=== PATIENT | male | born 1960 | race African-American/Black ===

== ENCOUNTER 2017-04-11 11:58 | Inpatient (IN) | payer BC ==
[~2017-04-11] VITALS: Ht 180.3 cm; Wt 133.4 kg
[2017-04-24] MEDS ORDERED: CLOP75TA PO (11:37)
[2017-04-24] MEDS ORDERED: AMLO5TAB2 PO (11:37)
[2017-04-24] MEDS ORDERED: CARV12.52 PO (11:37)
[2017-04-24] MEDS ORDERED: ASPI-110 PO (11:37)
[2017-04-24] MEDS ORDERED: LOSA50TA PO (11:37)
[2017-04-24] MEDS ORDERED: HYDR-3580 PO (12:30)
[2017-05-16] MEDS ORDERED: SODIUM CHLORID 0.9% 500 ML IV PRN (08:45)
[2017-05-16] MEDS ORDERED: INSULIN HUMAN REGULAR 1,000 UNITS/10 ML VIAL SQ PRN (08:45)
[2017-05-16] MEDS ORDERED: VANCOMYCIN 1000 MG/NS 250 ML (for <70 kg) IV SCH ×2 (08:45)
[2017-05-16] MEDS ORDERED: ceFAZolin 2 GM PREMIX 50 ML IV SCH (08:45)
[2017-05-16] MEDS ORDERED: POVIDONE IODINE 5% (ANTISEPSIS KIT) 4 APPLICATIONS EACH NARE PRN (08:45)
[2017-05-16] MEDS ORDERED: CHLORHEXIDINE GLUCONATE 2 % 1 PACK (2 CLOTHS) TOPICAL PRN (08:45)
[2017-05-16] MEDS ORDERED: METOPROLOL TARTRATE 25 MG TAB PO PRN (08:45)
[2017-05-16] MEDS ORDERED: LACTATED RINGER'S 1000 ML IV PRN (08:45)
[2017-05-16] MEDS ORDERED: CHLORHEXIDINE GLUCONATE 4% SOLN 120 ML BTL TOPICAL SCH (08:45)
[2017-05-16] MEDS ORDERED: SODIUM CHLORIDE 0.9% IV SCH (09:00)
[2017-05-16] MEDS ORDERED: TRANEXAMIC ACID IV SCH (09:00)
[2017-05-16] MEDS ORDERED: EXPAREL PERI-ARTICULAR INJECTION (TOTAL VOL. 60 ML) P-ARTICULR SCH ×2 (09:00)
[2017-05-16 09:15] VITALS: BP 149/97; PULSE 55; RESP 20; TEMP 98.3; O2SAT 97
[2017-05-16] MEDS ORDERED: ACETAMINOPHEN 1000 MG/100 ML VIAL IV ONE (11:12)
[2017-05-16] MEDS ORDERED: HYDR-3583 PO (11:43)
[2017-05-16] MEDS ORDERED: WALKER WHEELS/F1 MIS (11:43)
[2017-05-16] MEDS ORDERED: XARE10TA PO (11:43)
--- NOTE | 2017-05-16 11:44 | HHI.FF ---
Face to Face Verification Diagnosis: (1) Status post total hip replacement, right Physical Therapy Gait training Hip: Total hip, Protocol: Right, Progress to weight bearing Right LE Weight Bearing: WB as tolerated Nursing Dressing Changes: Daily dressing change, Coverderm/Primapore (begin adding xeroform POD 10) I have seen patient Ralph Bates on 05/16/17. My clinical findings support the need for the requested home health care services because: Ltd mobility - disease progression I certify that my clinical findings support that this patient is homebound because: Post-op weakness Trey Holland May 16, 2017 11:44
[2017-05-16] MEDS ORDERED: NEOSTIGMINE 3 MG/3 ML SYR IV ONE (12:00)
[2017-05-16] MEDS ORDERED: ONDANSETRON HCL 4 MG/2 ML VIAL IV PUSH ONE (12:00)
[2017-05-16] MEDS ORDERED: PROPOFOL 200 MG/20 ML AMP IV ONE (12:00)
[2017-05-16] MEDS ORDERED: ePHEDrine/NS 25 MG/5 ML SYR IV ONE (12:00)
[2017-05-16] MEDS ORDERED: GENTAMICIN SULFATE 80 MG/2 ML VIAL ONE (12:24)
[2017-05-16] MEDS ORDERED: DEXAMETHASONE SOD PHOS 4 MG/ML VIAL ONE (12:32)
[2017-05-16] MEDS: LACTATED RINGER'S 1000 ML INJ 1,000 ML IV SCH (15:02)
--- NOTE | 2017-05-16 15:06 | PD.OP ---
cc: Kadeem Stubbs MD Operative Report Date of Surgery: May 16, 2017 Preoperative Diagnosis: Severe right hip osteoarthritis Postoperative Diagnosis: Procedure: Right total hip arthroplasty the anterior approach Anesthesia: Gen. Surgeon: Kadeem Stubbs Shipfitter Helper(s): SAGRARIO Kennedy PA-C The surgical procedure was assisted by my physician election assistant. My P.A. presence was necessary throughout this case for the manipulation and positioning of the surgical extremity. My P.A. was assisting me throughout the duration of this procedure. The skill set of a physician election assistant was medically necessary to complete this procedure. During the surgical case the pv design and installation technician was working at the back table and the physician election assistant was directly assisting me. Operation and Findings: PLAN OF ACTIVITY Weight bear as tolerated. DRAINS: 7-mm PEBBLES drain. IMPLANTS USED DePuy Corail size [12] collared stem with a size [2] [place] Gription cup and a [36+8] ceramic Biolox ceramic head. DETAILS OF PROCEDURE: This patient has a long history of hip pain. Patient was found to have severe osteoarthritis. The patient had radiographic evidence of joint space narrowing with [id number] arthritis and osteophytes around the acetabulum as well as the femoral head. There was also some cystic changes. The patient failed conservative treatment with pain medications, anti-inflammatories, physical therapy, assistive devices including a cane, as well as therapeutic injection of the hip. Patient's hip arthritis was limiting his ability to ambulate and perform activities of daily living. The patient wished to proceed with surgery and informed consent was obtained. Operative site was marked. I discussed both posterior approach and anterior approach with the patient and decision was made for anterior approach. Patient was brought to OR and placed on OR table. IV sedation and general anesthesia was administered by anesthesiologist. Patient positioned on a Evelyn table and was given IV antibiotics. Time-out procedure was performed. The hip and thigh were prepped with alcohol followed by Hibiclens. The thigh was draped in the usual sterile fashion. Clean Air Suite was used for this procedure. The procedure began with a 5-inch incision over the anterolateral thigh. Subcutaneous tissue was dissected with Bovie. The fascia over the tensa fasciae latae was incised. Care was taken to avoid injury to the lateral femoral cutaneous nerve. The tensor muscle was retracted laterally. Sartorius was retracted medially. Retractors were now placed. The reflected head of the rectus is now elevated. A capsulotomy was performed over the anterior head capsule. Sutures were placed to help retract the capsule. At this point the femoral head and neck were identified. With soft tissue protected, oscillating saw was used to make a cut through the femoral neck, the femoral head was now removed. At this point attention was turned to preparation of the acetabulum. The labrum was excised. The acetabulum was sequentially reamed up to size [52]. A [place] cup was now placed. Fluoroscopy was used to aid in identification of appropriate version. Cup was fully impacted and found to have excellent fit. Hole eliminator was now placed. The liner was now impacted into the cup. At this point the hip was externally rotated. A hook was placed around the proximal femur. The capsule was released off the lateral and medial femur. The hip was now extended and adducted. Retractors were placed around the proximal femur to allow for exposure. A box osteotome was used to remove the lateral cortex of the femoral neck. A broach was used to help lateralize the prosthesis. Canal finder was used to create a path down the canal. Next, the canal was sequentially broached up to size [12]. This was found to be an excellent fit. Calcar planer was placed. A standard head was placed, and the hip was reduced. The hip was found to have excellent stability with good range of motion. The leg lengths were measured under fluoroscopy and found to be equal compared to preoperatively. Trial broach was removed. The Corail stem was opened. Stem was fully impacted into the proximal femur in appropriate version. The femoral head was placed. The hip was again reduced. Fluoroscopy confirmed excellent alignment of prosthesis. The wound was thoroughly irrigated and capsule was closed with #1 Vicryl. The fascia over the tensor fasciae muscle was closed with #1 Vicryl, subcutaneous tissue was closed with 3-0 Vicryl and the skin was closed with moody and Dermabond skin closure. The capsule layers were injected with a mixture of saline and bupivicaine. Dressings were applied. The patient was transferred to Recovery Room in stable condition. Kadeem Stubbs MD May 16, 2017 15:06
[2017-05-16] MEDS ORDERED: ACETAMINOPHEN/HYDROcodone 325 MG/7.5 MG TAB PO PRN (15:15)
[2017-05-16] MEDS ORDERED: NALOXONE HCL 0.4 MG/ML AMP IV PRN (15:15)
[2017-05-16] MEDS ORDERED: ONDANSETRON HCL 4 MG/2 ML VIAL IVP PRN (15:15)
[2017-05-16] MEDS ORDERED: MORPHINE SULFATE 4 MG/ML INJ IV PUSH PRN (15:15)
[2017-05-16] MEDS: KETOROLAC TROMETHAMINE 30 MG/ML (IVP) VIAL IV PUSH SCH (15:15)
[2017-05-16] MEDS ORDERED: Post-op Orders (for Pharmacy) MISC XX ONE (15:15)
[2017-05-16] MEDS ORDERED: SODIUM CHLORIDE 0.9% FLUSH 5 ML FLUSH IVF PRN (15:15)
--- NOTE | 2017-05-16 15:35 | RADRPT ---
EXAM DATE/TIME: 05/16/2017 13:02 [facility] COMPARISON: No previous studies available for comparison. INDICATIONS : Total right hip replacement. MEDICAL HISTORY : None. SURGICAL HISTORY : None. ENCOUNTER: Initial ACUITY: 1 day PAIN SCORE: Non-responsive. LOCATION: Right hip. FINDINGS: Total hip arthroplasty is in place. The femoral and acetabular components appear intact. There are no signs of loosening or fracture. CONCLUSION: Intact total hip prosthesis for dung. Berny Melton MD on May 16, 2017 at 15:33 Board Certified Radiologist. This report was verified electronically.
[2017-05-16] MEDS ORDERED: MORPHINE SULFATE 4 MG/ML INJ ONE (15:37)
[2017-05-16] MEDS ORDERED: MIDAZOLAM HCL 2 MG/2 ML VIAL ONE (15:37)
[2017-05-16] MEDS ORDERED: fentaNYL CITRATE 250 MCG/5 ML AMP ONE (15:38)
[2017-05-16] MEDS ORDERED: TRANEXAMIC ACID INJ 1,000 MG in SODIUM CHLORIDE 0.9% INJ 100 ML IV ONE (16:00)
[2017-05-16] MEDS ORDERED: *morphine SULFATE 8 MG/ML PERIprocedure ONLY ONE ×2 (16:04→16:35)
[2017-05-16] MEDS ORDERED: DO NOT ADM ANY ANTICOAGULANT DRUGS PRN (16:30)
[2017-05-16 17:00] VITALS: BP 150/86; PULSE 107; RESP 18; TEMP 98.2; O2SAT 93
--- NOTE | 2017-05-16 17:17 | RADRPT ---
EXAM DATE/TIME: 05/16/2017 15:38 [facility] COMPARISON: HIP RIGHT (AP&LAT 2/3VWS) WO AP PELVIS, May 16, 2017, 13:02. INDICATIONS : Post operative right hip. MEDICAL HISTORY : None. SURGICAL HISTORY : None. ENCOUNTER: Initial ACUITY: 1 day PAIN SCORE: Non-responsive. LOCATION: Right hip. FINDINGS: Total hip arthroplasty is in place on the right. The femoral and acetabular components appear intact . There are no signs of loosening or fracture. CONCLUSION: Intact total hip prosthesis for dung. Berny Melton MD on May 16, 2017 at 17:15 Board Certified Radiologist. This report was verified electronically.
[2017-05-16] MEDS: ceFAZolin 2 GM PREMIX 50 ML IV SCH (18:19)
[2017-05-16 19:40] VITALS: BP 134/86; PULSE 62; RESP 17; TEMP 98.3; O2SAT 94
[2017-05-16] MEDS: SODIUM CHLORIDE 0.9% FLUSH 5 ML FLUSH IVF SCH (20:02)
[2017-05-16 20:04] VITALS: O2SAT 93
[2017-05-16] MEDS: amLODIPine BESYLATE 5 MG TAB PO SCH (21:00)
[2017-05-16] MEDS: ACETAMINOPHEN/HYDROcodone 325 MG/10 MG TAB PO PRN (21:34)
[2017-05-16] MEDS: CARVEDILOL 12.5 MG TAB PO SCH (22:06)
[2017-05-16] MEDS: LOSARTAN 50 MG TAB PO SCH (22:06)
[2017-05-16] MEDS: VANCOMYCIN INJ 1,000 MG in SODIUM CHLOR 0.9% 250 ML INJ 250 ML IV SCH (23:08)
[2017-05-17] VITALS (7 sets, daily range): BP systolic 111–145; BP diastolic 66–84; PULSE 56–69; RESP 17–18; TEMP 97.6–98; O2SAT 94–97
[2017-05-17] MEDS: ceFAZolin 2 GM PREMIX 50 ML IV SCH ×2 (01:39→06:23)
[2017-05-17] MEDS: KETOROLAC TROMETHAMINE 30 MG/ML (IVP) VIAL IV PUSH SCH ×2 (03:53→15:37)
[2017-05-17] MEDS: LACTATED RINGER'S 1000 ML INJ 1,000 ML IV SCH ×3 (03:54→20:43)
--- NOTE | 2017-05-17 06:36 | PD.ORT.PN ---
Subjective Subjective Remarks POD 1 s/p Right MARNIE doing well. pain controlled. out of bed yesterday and sat in chair. Objective Vitals Vital Signs Date Time Temp Pulse Resp B/P Pulse Ox O2 Delivery O2 Flow Rate FiO2 05/17/17 03:51 97.8 58 17 144/80 94 05/17/17 00:30 97.8 58 17 127/84 94 05/16/17 20:04 93 21 05/16/17 19:40 98.3 62 17 134/86 94 05/16/17 17:00 98.2 107 18 150/86 93 05/16/17 17:00 60 20 148/91 93 Room Air 05/16/17 16:45 59 20 146/87 92 Room Air 05/16/17 16:30 57 20 146/86 94 Room Air 05/16/17 16:15 57 20 147/86 93 Room Air 05/16/17 16:00 58 20 147/84 94 Room Air 05/16/17 15:45 66 20 139/75 92 Nasal Cannula 2 05/16/17 15:29 98.0 68 20 133/71 99 Nasal Cannula 2 05/16/17 09:15 98.3 55 20 149/97 97 I/O 05/16/17 05/16/17 05/16/17 05/17/17 05/17/17 05/17/17 07:00 15:00 23:00 07:00 15:00 23:00 Intake Total 2260 ml Output Total 525 ml Balance 1735 ml Intake IV Total 160 ml Other 2100 ml Output Urine Total 300 ml Drainage Total 175 ml Estimated Blood Loss 50 ml # Voids 1 Imaging Last 24 hours Impressions Hip and Pelvis X-Ray 05/16/17 1502 Signed Impressions: Service Date/Time: Tuesday, May 16, 2017 15:38 - CONCLUSION: Intact total hip prosthesis for technique. K. Harlan Melton MD Objective Remarks RLE: Dressings clean and dry. intact. +drain. NVI distally Assessment & Plan Assessment and Plan 1) Right Anterior MARNIE - POD 1 -WBAT -daily dressing changes starting tomorrow -work aggressively with PT -DVT prophylaxis with Lovenox. convert to xarelto on discharge -DC drain after PT today -plan for DC home with [facility] tomorrow -f/u with Trey or PA in 2 weeks Trey Holland PA May 17, 2017 06:36
[2017-05-17 08:24] LABS: HEMATOCRIT 36.8 % (39.0-51.0); REVIEW FLAG FINAL
[2017-05-17] MEDS: amLODIPine BESYLATE 5 MG TAB PO SCH (08:35)
[2017-05-17] MEDS: CARVEDILOL 12.5 MG TAB PO SCH (08:35)
[2017-05-17] MEDS: LOSARTAN 50 MG TAB PO SCH (08:35)
[2017-05-17] MEDS: ACETAMINOPHEN/HYDROcodone 325 MG/10 MG TAB PO PRN ×3 (08:36→16:44)
[2017-05-17] MEDS: SODIUM CHLORIDE 0.9% FLUSH 5 ML FLUSH IVF SCH ×2 (08:40→20:50)
[2017-05-17] MEDS: VANCOMYCIN INJ 1,000 MG in SODIUM CHLOR 0.9% 250 ML INJ 250 ML IV SCH (10:33)
[2017-05-17] MEDS: ENOXAPARIN SODIUM 40 MG/0.4 ML SYRINGE SQ SCH (15:37)
[2017-05-17] MEDS: DOCUSATE SODIUM 100 MG CAP PO SCH (20:50)
[2017-05-17] MEDS: MAGNESIUM HYDROXIDE SUSP 30 ML CUP PO SCH (20:50)
[2017-05-17] MEDS: BISACODYL EC 5 MG TABEC PO SCH ×2 (20:50)
[2017-05-17] MEDS ORDERED: POLYETHYLENE GLYCOL 17 GM PKG PO SCH (21:00)
[2017-05-18] VITALS: BP 131/81; PULSE 61; RESP 16; TEMP 98.9; O2SAT 95
[2017-05-18] MEDS: ACETAMINOPHEN/HYDROcodone 325 MG/10 MG TAB PO PRN ×3 (00:11→09:33)
[2017-05-18] MEDS: KETOROLAC TROMETHAMINE 30 MG/ML (IVP) VIAL IV PUSH SCH (03:03)
--- NOTE | 2017-05-18 06:40 | PD.ORT.PN ---
Subjective Subjective Remarks Resting comfortably Objective Vitals Vital Signs Date Time Temp Pulse Resp B/P Pulse Ox O2 Delivery O2 Flow Rate FiO2 05/18/17 00:00 98.9 61 16 131/81 95 05/17/17 20:00 98.0 64 17 111/66 95 05/17/17 16:00 98.0 69 18 133/73 97 05/17/17 12:00 97.8 56 18 145/77 95 05/17/17 09:40 95 21 05/17/17 08:00 97.6 57 18 142/78 94 I/O 05/17/17 05/17/17 05/17/17 05/18/17 05/18/17 05/18/17 07:00 15:00 23:00 07:00 15:00 23:00 Intake Total 240 ml 1507 ml 570 ml 480 ml Output Total 600 ml 90 ml 480 ml 500 ml Balance -360 ml 1417 ml 90 ml -20 ml Intake Oral 240 ml 650 ml 570 ml 480 ml IV Total 857 ml Output Urine Total 600 ml 450 ml 500 ml Drainage Total 90 ml 30 ml # Voids 3 # Bowel Movements 0 0 1 Result Diagram: 05/17/17 0639 Imaging Last 24 hours Impressions Hip and Pelvis X-Ray 05/16/17 1502 Signed Impressions: Service Date/Time: Tuesday, May 16, 2017 15:38 - CONCLUSION: Intact total hip prosthesis for technique. Berny Melton MD Objective Remarks RLE: Dressings clean and dry. intact. Mild swelling. NVI distally Assessment & Plan Assessment and Plan 1) Right Anterior MARNIE - POD 2 -WBAT -daily dressing changes -work aggressively with PT -DVT prophylaxis with Lovenox. convert to xarelto on discharge -plan for DC home with [facility] today -f/u with Trey or FRANK in 2 weeks Mak Corcoran Jr. May 18, 2017 06:40
--- NOTE | 2017-05-18 06:55 | HHI.DS ---
Discharge Summary Admission Date May 16, 2017 at 08:06 Discharge Date: May 18, 2017 Admitting Diagnosis Osteoarthritis right hip (1) Status post total hip replacement, right Diagnosis: Principal Procedures Right anterior total hip Brief History Ralph is a 56-year-old male who has had severe osteoarthritis of right hip. He is failed conservative measures which include anti-inflammatories last modifications and intra-articular articular steroid injections. He is admitted due to failed pain control and a right total hip arthroplasty is scheduled. CBC/BMP: 05/17/17 0639 Significant Findings Laboratory Tests Test 05/17/17 06:39 Hemoglobin 12.0 GM/DL (13.0-17.0) Hematocrit 36.8 % (39.0-51.0) Imaging Last 72 hours Impressions Hip and Pelvis X-Ray 05/16/17 1502 Signed Impressions: Service Date/Time: Tuesday, May 16, 2017 15:38 - CONCLUSION: Intact total hip prosthesis for technique. Berny Melton MD Hip X-Ray 05/16/17 0000 Signed Impressions: Service Date/Time: Tuesday, May 16, 2017 13:02 - CONCLUSION: Intact total hip prosthesis for technique. Berny Melton MD Hospital Course Ralph is admitted and brought to the operating room. Right total hip arthroplasty performed with no complications. Patient remains hemodynamically stable and pain is controlled. He progresses well with physical therapy and is minimal assist. After 2 days he is discharged home with home health care. His is around the house and will also help with assist. Pt Condition on Discharge: Good Discharge Disposition: Disch w/ Home Health Serv Discharge Instructions DIET: Follow Instructions for: As Tolerated, No Restrictions Activities you can perform: Full Weight Bearing Activities to avoid: Shower Follow up Referrals: Orthopedics - 05/30/17 @ [facility] with Kadeem Yang MD New Medications: Hydrocodone-Acetaminophen (Hydrocodone-Acetaminophen) 10-325 mg Tab 1 TAB PO Q4H PRN PAIN #60 Ref 0 TAB Rivaroxaban (Xarelto) 10 Mg Tab 10 MG PO DAILY Blood Clot Prevention #14 Ref 0 TAB Walker with Front Wheels (Walker with Front Wheels) 1 Mis Mis 1 EA .ROUTE DIRECTED #1 Ref 0 EA Mak Corcoran Jr. May 18, 2017 06:55
[2017-05-18] MEDS: BISACODYL EC 5 MG TABEC PO SCH ×2 (07:11→07:27)
[2017-05-18] MEDS: MAGNESIUM HYDROXIDE SUSP 30 ML CUP PO SCH (07:11)
[2017-05-18] MEDS: amLODIPine BESYLATE 5 MG TAB PO SCH (07:27)
[2017-05-18] MEDS: CARVEDILOL 12.5 MG TAB PO SCH (07:27)
[2017-05-18] MEDS: DOCUSATE SODIUM 100 MG CAP PO SCH (07:27)
[2017-05-18] MEDS: LOSARTAN 50 MG TAB PO SCH (07:28)
[2017-05-18] MEDS: LACTATED RINGER'S 1000 ML INJ 1,000 ML IV SCH (07:29)
[2017-05-18] MEDS: SODIUM CHLORIDE 0.9% FLUSH 5 ML FLUSH IVF SCH (07:32)
[2017-05-18 07:36] VITALS: PULSE 62
[2017-05-18 08:00] VITALS: BP 114/74; PULSE 65; RESP 16; TEMP 98.3; O2SAT 94
[2017-05-18] MEDS: ENOXAPARIN SODIUM 40 MG/0.4 ML SYRINGE SQ SCH (12:00)
== END 2017-05-18 12:14 | disposition home health service (06) | DRG 470 ==
LOC: HSDI 05-16 08:06 → N06A 05-16 17:19
PROVIDERS: ADMIT Orthopaedic Surgery Orthopaedic Trauma; ATTEND Orthopaedic Surgery Orthopaedic Trauma
PROC: 0SRB04A Replacement of Left Hip Joint with Ceramic on Polyethylene Synthetic Substitute, Uncemented, Open Approach (ICD-10-PCS; principal; 2017-05-16 12:39)
DX: M16.11 Unilateral primary osteoarthritis, right hip (principal); Z68.41 Body mass index [BMI] 40.0-44.9, adult; E66.9 Obesity, unspecified
CPT/HCPCS: 73501; 73502; 76000; 85014; 85018; 86850; 86900; 86901; C1776; C9290; J0131; J0690; J1100; J1580; J1650; J1885; J2250; J2270; J2405; J2710; J3010; J3370; J7050; J7120

== ENCOUNTER → 2017-04-24 | Outpatient (CLI) | payer BC ==
[~2017-04-24] MED LIST: AMLO5TAB2 PO; ASPI-110 PO; ASPI81 CHEW; CARV12.52 PO; CLOP75TA PO; CORE6.25 PO; HYDR-3580 PO; LISI20 PO; LOSA50TA PO; NITR.4 SL; NORV5TAB PO; PLAV75TA PO; Z.0.UNKNOWN
--- NOTE | 2017-04-24 12:25 | RADRPT ---
EXAM DATE/TIME: 04/24/2017 12:13 [facility] COMPARISON: No previous studies available for comparison. INDICATIONS : Evaluate for pneumonia, pneumothorax or communicable disease. Pre op right hip replacement. MEDICAL HISTORY : Cardiovascular disease. SURGICAL HISTORY : Coronary artery stent. ENCOUNTER: Initial ACUITY: 1 day PAIN SCORE: 0/10 LOCATION: Bilateral chest FINDINGS: PA and lateral views of the chest demonstrate the lungs to be symmetrically aerated without evidence of mass, infiltrate or effusion. The cardiomediastinal contours are unremarkable. Degenerative mcleod ges are present in the thoracic spine. CONCLUSION: No acute disease. Madi Prabhakar MD FACR on April 24, 2017 at 12:22 Board Certified Radiologist. This report was verified electronically.
--- NOTE | 2017-04-25 16:53 | EKG ---
Date Performed: 04/24/2017 Time Performed: 11:56:43 PTAGE: 56 years EKG: SINUS BRADYCARDIA WITH SINUS ARRHYTHMIA Since previous tracing, no significant change noted BORDERLINE ECG PREVIOUS TRACING : 09/12/2013 10.53 DOCTOR: Alina Aguirre Interpretating Date/Time 04/25/2017 17:33:13
== END ==
LOC: CPRE 11:26
PROVIDERS: ATTEND Orthopaedic Surgery Orthopaedic Trauma
DX: Z01.810 Encounter for preprocedural cardiovascular examination (principal); Z01.811 Encounter for preprocedural respiratory examination; M79.609 Pain in unspecified limb; R94.31 Abnormal electrocardiogram [ECG] [EKG]; Z13.9 Encounter for screening, unspecified; Z79.01 Long term (current) use of anticoagulants; Z96.60 Presence of unspecified orthopedic joint implant
CPT/HCPCS: 71020; 93005

== ENCOUNTER 2017-06-04 06:24 | Emergency (ER) | payer BC ==
[~2017-06-04] VITALS: Ht 180.3 cm; Wt 130.5 kg
[~2017-06-04 06:24] MED LIST changes: -ASPI81 CHEW; -CORE6.25 PO; +HYDR-3583 PO; -LISI20 PO; -NITR.4 SL; -NORV5TAB PO; -PLAV75TA PO; +WALKER WHEELS/F1 MIS; +XARE10TA PO; -Z.0.UNKNOWN
[2017-06-04 06:26] VITALS: BP 171/90; PULSE 67; RESP 16; TEMP 99.1; O2SAT 97
[2017-06-04 06:45] VITALS: BP 180/108; PULSE 59; RESP 18; O2SAT 99
[2017-06-04 07:05] VITALS: BP 160/74; PULSE 57; RESP 20; O2SAT 100
[2017-06-04] MEDS ORDERED: KETOROLAC TROMETHAMINE 30 MG/ML (IVP) VIAL IV PUSH ONE (07:15)
[2017-06-04] MEDS ORDERED: META1TAB17 PO (07:30)
--- NOTE | 2017-06-04 07:30 | PD ---
HPI Chief Complaint: Back/ Neck Pain or Injury Time Seen by Provider: 07:00 Travel History International Travel<30 days: No Contact w/Intl Traveler<30days: No Traveled to known affect area: No History of Present Illness HPI 57 y/o male presents with left neck pain that is been present over the past couple of weeks. He states that he had a hip replacement and has had to be sleeping differently than he normally sleeps and that is made his neck feel uncomfortable. He states he went to his primary care physician who wrote him for a muscle relaxant but it was a lower dose and did not help. He states he's also been trying Motrin. He denies any numbness, trauma, chest pain, left arm pain, shortness of breath or other concurrent complaints. The pain is worse with movement. He states he is here for further pain control. He states no other modifying factors. He states this does not feel like his prior cardiac event as that he had chest pain and chest pressure. PFSH Past Medical History Cancer: No Cardiac Catheterization: Yes Cardiovascular Problems: Yes (Stents 2011) High Cholesterol: Yes Diabetes: No Endocrine: No Genitourinary: No Hepatitis: No Hiatal Hernia: No Hypertension: Yes Immune Disorder: No Medical other: Yes (PSORIASIS) Musculoskeletal: Yes (OA) Neurologic: No Psychiatric: No Reproductive: No Respiratory: No Thyroid Disease: No Tetanus Vaccination: Unknown Influenza Vaccination: Yes Past Surgical History Abdominal Surgery: No AICD: No Body Medical Devices: CARDIAC STENTS Cardiac Surgery: Yes (CARDIAC STENTS) Coronary Stent: Yes (2 STENTS JUL 17 2012) Ear Surgery: No Endocrine Surgery: No Eye Surgery: No Genitourinary Surgery: No Joint Replacement: Yes (R hip replacement 05/2017) Oral Surgery: No Pacemaker: No Thoracic Surgery: No Social History Alcohol Use: No Tobacco Use: No Substance Use: No Allergies-Medications (Allergen,Severity, Reaction): Coded Allergies: No Known Allergies (Unverified , 04/24/17) Reported Meds & Prescriptions Reported Meds & Active Scripts Active Metaxalone 400 Mg Tab 400 Mg PO HS Walker with Front Wheels (Device) 1 Mis Mis 1 Ea .ROUTE DIRECTED Reported Aspirin 81 (Aspirin) 81 Mg Tabdr 81 Mg PO DAILY Carvedilol 12.5 Mg Tab 12.5 Mg PO BID Losartan (Losartan Potassium) 50 Mg Tab 50 Mg PO DAILY Amlodipine (Amlodipine Besylate) 5 Mg Tab 5 Mg PO DAILY Review of Systems Except as stated in HPI: all other systems reviewed are Neg Physical Exam Narrative GENERAL: Well-nourished, well-developed patient. Well-appearing SKIN: Warm and dry. HEAD: Normocephalic and atraumatic. EYES: No injection or drainage. ENT: No nasal drainage noted. NECK: Supple, trachea midline. Nontender in midline, pinpoint tender to left trapezius which is worse with movement, no hematoma CARDIOVASCULAR: Regular rate and rhythm RESPIRATORY: Breath sounds equal bilaterally. No accessory muscle use. GASTROINTESTINAL: Abdomen soft, non-tender, nondistended. EXTREMITIES: No edema. BACK: Nontender without obvious deformity in midline, no CVA tenderness. NEUROLOGICAL: Awake and alert. Motor and sensory grossly within normal limits. Normal speech. Data Data Last Documented VS Vital Signs Date Time Temp Pulse Resp B/P Pulse Ox O2 Delivery O2 Flow Rate FiO2 06/04/17 07:05 57 20 160/74 100 Room Air 06/04/17 06:26 99.1 Orders Ketorolac Inj (Toradol Inj) (06/04/17 07:15) [facility] Medical Decision Making Medical Screen Exam Complete: Yes Emergency Medical Condition: Yes Medical Record Reviewed: Yes (past history confirmed) Differential Diagnosis Musculoskeletal strain, rotator cuff tendinitis, spasm Narrative Course Lengthy discussion with patient and he agrees to no emergency testing here. We will provide with Toradol for pain control here and send home on a different muscle relaxant. He is in agreement to this. Given return instructions. Advised to follow closely with primary care physician. All questions answered. Diagnosis Primary Impression: Strain of neck Qualified Code: S16.1XXA - Strain of neck, initial encounter Patient Instructions: General Instructions Additional Instructions: return as needed, tylenol as needed, follow with primary monday Med/Other Pt SpecificInfo: Prescription(s) given Scripts Metaxalone 400 Mg [id number] Mg PO HS #15 TAB Prov:Laura Reis MD 06/04/17 Disposition: 01 DISCHARGE HOME Condition: Stable Laura Reis MD Jun 04, 2017 07:30
== END 2017-06-04 07:50 | disposition home or self-care (01) ==
LOC: NEPE 06:24
DX: S16.1XXA Strain of muscle, fascia and tendon at neck level, initial encounter (principal); X50.9XXA Other and unspecified overexertion or strenuous movements or postures, initial encounter; Y93.84 Activity, sleeping
CPT/HCPCS: 96374; 99284; J1885

== ENCOUNTER 2017-06-05 22:55 | Emergency (ER) | payer BC ==
[~2017-06-05 22:55] MED LIST changes: +META1TAB17 PO
[2017-06-05 22:56] VITALS: BP 165/82; PULSE 57; RESP 16; TEMP 98.4; O2SAT 99
[2017-06-06] MEDS ORDERED: GABAPENTIN 300 MG CAP PO ONE (01:30)
[2017-06-06] MEDS ORDERED: ACETAMINOPHEN/HYDROcodone 325 MG/5 MG TAB PO ONE (01:30)
[2017-06-06] MEDS ORDERED: NEUR300C PO (01:32)
--- NOTE | 2017-06-06 01:38 | PD ---
HPI Chief Complaint: Injury Time Seen by Provider: 01:32 Travel History International Travel<30 days: No Contact w/Intl Traveler<30days: No Traveled to known affect area: No History of Present Illness HPI 57-year-old black male presents a second time with complaints of left neck and upper arm pain he states that the pain is been present now for the past 1-2 weeks. He has started after he has had surgery on his right hip. He states that he had a right hip replacement. He is under the care of Dr. Stubbs. He is no longer taking any medications for his hip. He states that his hip is doing well. He was seen by one of the PAs who advised to take ibuprofen. Patient was followed up by his primary care Dr. Dr. Sanchez and was given a 4 mg muscle relaxer. He states that he had taken this several times without relief. This has prompted him to come to the ER. He was also seen in the ER and was given a prescription for Skelaxin. The patient returns this evening because once again he is not getting relief with this pain. He states that the pain radiates from his left neck down into his shoulder, upper arm and now is down into his left index finger. He denies any direct trauma. He has had a history of cervical disc disease in the past. He denies any fever or chills. No chest pain, shortness of breath, nausea, vomiting, weakness. PFSH Past Medical History Cancer: No Cardiac Catheterization: Yes Cardiovascular Problems: Yes (Stents 2011) High Cholesterol: Yes Diabetes: No Endocrine: No Gastrointestinal Disorders: No Genitourinary: No Hepatitis: No Hiatal Hernia: No Hypertension: Yes Immune Disorder: No Medical other: Yes (PSORIASIS) Musculoskeletal: Yes (OA) Neurologic: No Psychiatric: No Reproductive: No Respiratory: No Thyroid Disease: No Past Surgical History Abdominal Surgery: No AICD: No Body Medical Devices: CARDIAC STENTS Cardiac Surgery: Yes (CARDIAC STENTS) Coronary Stent: Yes (2 STENTS JUL 17 2012) Ear Surgery: No Endocrine Surgery: No Eye Surgery: No Genitourinary Surgery: No Joint Replacement: Yes (R hip replacement 05/2017) Neurologic Surgery: No Oral Surgery: No Pacemaker: No Thoracic Surgery: No Other Surgery: Yes Social History Alcohol Use: No Tobacco Use: No Substance Use: No Allergies-Medications (Allergen,Severity, Reaction): Coded Allergies: No Known Allergies (Unverified , 06/06/17) Reported Meds & Prescriptions Reported Meds & Active Scripts Active Neurontin (Gabapentin) 300 Mg Cap 300 Mg PO TID Metaxalone 400 Mg Tab 400 Mg PO HS Walker with Front Wheels (Device) 1 Mis Mis 1 Ea .ROUTE DIRECTED Reported Aspirin 81 (Aspirin) 81 Mg Tabdr 81 Mg PO DAILY Carvedilol 12.5 Mg Tab 12.5 Mg PO BID Losartan (Losartan Potassium) 50 Mg Tab 50 Mg PO DAILY Amlodipine (Amlodipine Besylate) 5 Mg Tab 5 Mg PO DAILY Review of Systems Except as stated in HPI: all other systems reviewed are Neg Physical Exam Narrative GENERAL: This is a well-nourished, well-developed patient, in no apparent distress. SKIN: No rashes, ecchymoses or lesions. Warm and dry. HEAD: Atraumatic. Normocephalic. EYES: PERRL, EOMI, no discharge or injection. No scleral icterus. EARS: Clear NOSE: Nasal turbinates appear normal. THROAT: Mucosa pink and moist. Airway patent. NECK: Trachea midline. supple, moves head freely. Tenderness to the left paracervical musculature. No gross spasm. LUNGS: Clear to auscultation. CV: Regular in rhythm. ABDOMEN: Soft nontender. EXT: No clubbing cyanosis or edema. Patient moves his left upper extremity freely. There is no sensorimotor deficit. Data Data Last Documented VS Vital Signs Date Time Temp Pulse Resp B/P Pulse Ox O2 Delivery O2 Flow Rate FiO2 06/05/17 22:56 98.4 57 16 165/82 99 Room Air Orders Acetamin-Hydrocod 325-5 Mg ([place] 5-325 (06/06/17 01:30) Gabapentin (Neurontin) (06/06/17 01:30) [facility] Medical Decision Making Medical Screen Exam Complete: Yes Emergency Medical Condition: Yes Medical Record Reviewed: Yes Differential Diagnosis Differential diagnosis: Acute coronary syndrome, cervical radiculopathy, neck strain, neck spasm Narrative Course Patient is given Lortab 5 and Neurontin 300 mg by mouth. This is left cervical radiculopathy Diagnosis Primary Impression: Left cervical radiculopathy Patient Instructions: General Instructions, Narcotic given in the ED Additional Instructions: Rest. Consider massage. Alternating ice and heat whichever seems to work the best. Neurontin. Continue 3 ibuprofen tablets [address] Sanchez and Dr. Stubbs for follow-up in the next few days. Return to the ER for emergencies. Med/Other Pt SpecificInfo: Prescription(s) given Scripts Gabapentin (Neurontin)300 Mg [id number] Mg PO TID #30 CAP Prov:Nia Brumfield MD 06/06/17 Disposition: 01 DISCHARGE HOME Condition: Stable Mino Kimble Jun 06, 2017 01:38
== END 2017-06-06 01:46 | disposition home or self-care (01) ==
LOC: NEPD 22:55
DX: M54.12 Radiculopathy, cervical region (principal); I10 Essential (primary) hypertension; Z96.641 Presence of right artificial hip joint
CPT/HCPCS: 99283

== ENCOUNTER 2017-10-09 07:30 | Emergency (ER) | payer BC ==
[~2017-10-09 07:30] MED LIST changes: -ASPI-110 PO; +ASPI1TAB57 PO; -CLOP75TA PO; -HYDR-3580 PO; -HYDR-3583 PO; +NEUR300C PO; -XARE10TA PO
[2017-10-09 07:32] VITALS: BP 161/84; PULSE 82; RESP 20; TEMP 100.7; O2SAT 95
[2017-10-09 07:51] VITALS: BP 133/85; PULSE 82; RESP 18; TEMP 100.4; O2SAT 97
[2017-10-09] MEDS ORDERED: ONDANSETRON HCL 4 MG/2 ML VIAL IV PUSH ONE (08:00)
[2017-10-09] MEDS ORDERED: SODIUM CHLOR 0.9% 1000 ML INJ 1,000 ML IV ONE (08:00)
[2017-10-09] MEDS ORDERED: ACETAMINOPHEN 325 MG TAB PO ONE (08:00)
--- NOTE | 2017-10-09 08:03 | PD ---
HPI Chief Complaint: Fever Time Seen by Provider: 07:44 Travel History International Travel<30 days: No Contact w/Intl Traveler<30days: No Traveled to known affect area: No History of Present Illness HPI 57yo M with PMH of HTN, CAD s/p cardiac stent 2011 presents to the ED with c/o chills, nonbloody diarrhea, nausea, left lower leg pain and swelling and right sided headache for 4 days. States he sweats when he has chills. Headache is right sided, intermittent and relieve with alleve. Left leg pain is worst with palpation. Said his grandson had similar symptoms but he is vomiting. Denies any cough, chest pain, sob, vomiting, abdominal pain, visual changes, neck pain , focal weakness or numbness. Denies any trauma, history of DVT/PE, recent traveling. PFSH Past Medical History Cancer: No Cardiac Catheterization: Yes Cardiovascular Problems: Yes High Cholesterol: Yes Diabetes: No Endocrine: No Gastrointestinal Disorders: No Genitourinary: No Hepatitis: No Hiatal Hernia: No Hypertension: Yes Immune Disorder: No Medical other: Yes (PSORIASIS) Musculoskeletal: Yes (OA) Neurologic: No Psychiatric: No Reproductive: No Respiratory: No Myocardial Infarction: Yes ("possibly in 2011") Thyroid Disease: No Past Surgical History Abdominal Surgery: No AICD: No Body Medical Devices: CARDIAC STENTS Cardiac Surgery: Yes (CARDIAC STENTS) Coronary Stent: Yes (2 STENTS JUL 17 2012) Ear Surgery: No Endocrine Surgery: No Eye Surgery: No Genitourinary Surgery: No Joint Replacement: Yes (R hip replacement 05/2017) Neurologic Surgery: No Oral Surgery: No Pacemaker: No Thoracic Surgery: No Other Surgery: Yes Social History Alcohol Use: No Tobacco Use: No Substance Use: No Allergies-Medications (Allergen,Severity, Reaction): Coded Allergies: No Known Allergies (Unverified , 06/06/17) Reported Meds & Prescriptions Reported Meds & Active Scripts Active Tylenol (Acetaminophen) 325 Mg Tab 650 Mg PO Q6H PRN Clindamycin (Clindamycin HCl) 300 Mg Cap 300 Mg PO Q6H 10 Days Neurontin (Gabapentin) 300 Mg Cap 300 Mg PO TID Metaxalone 400 Mg Tab 400 Mg PO HS Walker with Front Wheels (Device) 1 Mis Mis 1 Ea .ROUTE DIRECTED Reported Aspirin 81 (Aspirin) 81 Mg Tabdr 81 Mg PO DAILY Carvedilol 12.5 Mg Tab 12.5 Mg PO BID Losartan (Losartan Potassium) 50 Mg Tab 50 Mg PO DAILY Amlodipine (Amlodipine Besylate) 5 Mg Tab 5 Mg PO DAILY Review of Systems Except as stated in HPI: all other systems reviewed are Neg Physical Exam Narrative GENERAL: 57yo M in mild distress. SKIN: Diaphoretic. HEAD: Atraumatic. Normocephalic. EYES: Pupils equal and round at 3mm bilaterally. EOMI. ENT: No nasal bleeding or discharge. Mucous membranes pink and moist. NECK: No nuchal rigidity. CARDIOVASCULAR: Regular rate and rhythm. No murmur appreciated. RESPIRATORY: No accessory muscle use. Clear to auscultation. Breath sounds equal bilaterally. GASTROINTESTINAL: Abdomen soft, non-tender, nondistended. No rebound tenderness or guarding. MUSCULOSKELETAL: LUE: +Edema from below knee to ankle. Warm to touch. + Erythema. DP 2+. Sensation intact. NEUROLOGICAL: Awake and alert. No obvious cranial nerve deficits. Motor grossly within normal limits. Normal speech. PSYCHIATRIC: Appropriate mood and affect; insight and judgment normal. Data Data Last Documented VS Vital Signs Date Time Temp Pulse Resp B/P (MAP) Pulse Ox O2 Delivery O2 Flow Rate FiO2 10/09/17 09:19 98.9 82 18 133/85 (101) 98 Room Air Orders Orders Acetaminophen (Tylenol) (10/09/17 08:00) Ondansetron Inj (Zofran Inj) (10/09/17 08:00) Influenzae A/B Antigen (10/09/17 07:52) Complete Blood Count With Diff (10/09/17 07:52) Basic Metabolic Panel (Bmp) (10/09/17 07:52) Prothrombin Time / Inr (Pt) (10/09/17 07:52) Act Partial Throm Time (Ptt) (10/09/17 07:52) Lactic Acid Sepsis Protocol (10/09/17 07:52) Us Leg Venous Doppler (10/09/17 ) Sodium Chlor 0.9% 1000 Ml Inj (Ns 1000 M (10/09/17 08:00) Blood Culture (10/09/17 08:03) Clindamycin 600 Mg Premix (Cleocin 600 M (10/09/17 08:15) Potassium Chloride (Kcl) (10/09/17 09:15) Ed Discharge Order (10/09/17 10:33) Labs Laboratory Tests Test 10/09/17 07:53 10/09/17 07:55 Lactic Acid Level 1.5 mmol/L White Blood Count 24.0 TH/MM3 Red Blood Count 3.72 MIL/MM3 Hemoglobin 10.7 GM/DL Hematocrit 32.9 % Mean Corpuscular Volume 88.6 FL Mean Corpuscular Hemoglobin 28.8 PG Mean Corpuscular Hemoglobin Concent 32.6 % Red Cell Distribution Width 14.0 % Platelet Count 246 TH/MM3 Mean Platelet Volume 9.1 FL Neutrophils (%) (Auto) 83.8 % Lymphocytes (%) (Auto) 7.7 % Monocytes (%) (Auto) 7.8 % Eosinophils (%) (Auto) 0.2 % Basophils (%) (Auto) 0.5 % Neutrophils # (Auto) 20.1 TH/MM3 Lymphocytes # (Auto) 1.8 TH/MM3 Monocytes # (Auto) 1.9 TH/MM3 Eosinophils # (Auto) 0.0 TH/MM3 Basophils # (Auto) 0.1 TH/MM3 CBC Comment AUTO DIFF Differential Total Cells Counted 100 Neutrophils % (Manual) 63 % Band Neutrophils % 23 % Lymphocytes % 8 % Monocytes % 4 % Neutrophils # (Manual) 21.1 TH/MM3 Metamyelocytes 2 % Differential Comment FINAL DIFF MANUAL Toxic Granulation 1+ Toxic Vacuolation PRESENT Dohle Bodies PRESENT Platelet Estimate NORMAL Platelet Morphology Comment NORMAL Prothrombin Time 11.0 SEC Prothromb Time International Ratio 1.1 RATIO Activated Partial Thromboplast Time 37.8 SEC Blood Urea Nitrogen 15 MG/DL Creatinine 1.29 MG/DL Random Glucose 102 MG/DL Calcium Level 8.8 MG/DL Sodium Level 132 MEQ/L Potassium Level 3.3 MEQ/L Chloride Level 96 MEQ/L Carbon Dioxide Level 27.0 MEQ/L Anion Gap 9 MEQ/L Estimat Glomerular Filtration Rate 70 ML/MIN [facility] Medical Decision Making Medical Screen Exam Complete: Yes Emergency Medical Condition: Yes Interpretation(s) EKG: NSR 74bpm. Normal axis. Differential Diagnosis Cellulitis vs. DVT vs. viral syndrome vs. tension headache vs. sinus headache vs. influenza Narrative Course 57yo M with chills, left leg redness, swelling for 4 days. Denies any trauma, focal weakness or numbness. Also with mild headache and diarrhea. Impression is more left leg cellulitis but will r/o DVT. Pt has mild fever of 100.4F here so will give acetaminophen. Labs reviewed, leukocytosis at 24,000. Bandemia 23 %. H/H low at 10.7/32.9. Mild hypokalemia, replaced orally. Prolong PTT. Lactic acid is normal at 1.5. Temp improved to 98.9F after acetaminophen. Influenza negative. US left lower extremity showed no DVT. Multiple left inguinal lymph nodes. Pt is septic with bandemia and fever and blood culture was drawn and pt was given NS IVF and IV clindamycin. I wanted to admit pt for sepsis secondary to left leg cellulitis but pt is insistent on going home. Pt refused admission and understands the risks including worsening infection and . Pt is tolerating PO now and said the headache and leg pain has improved. Return precautions given. Diagnosis Primary Impression: Cellulitis Qualified Codes: L03.116 - Cellulitis of left lower limb Patient Instructions: General Instructions Departure Forms: Tests/Procedures Additional Instructions: Please return to the ED if you have fever, worsening pain, vomiting or any other concerning symptoms. Please follow up with your primary care physician in 1-2 days. Med/Other Pt SpecificInfo: Prescription(s) given Scripts Acetaminophen (Tylenol) 325 Mg Tab 650 MG PO Q6H Y for PAIN SCALE 1 TO 4, #20 TAB 0 Refills Prov: Cynthia Silvestre DO 10/09/17 Clindamycin (Clindamycin) 300 Mg Cap 300 MG PO Q6H for Infection for 10 Days, #40 CAP 0 Refills Prov: Cynthia Silvestre DO 10/09/17 Disposition: 01 DISCHARGE HOME Condition: Stable Cynthia Silvestre DO Oct 09, 2017 08:03
[2017-10-09] MEDS ORDERED: CLINDAMYCIN 600 MG/DEX PREMIX 50 ML IV ONE (08:15)
[2017-10-09 08:16] LABS: AUTOMATED NEUTROPHIL # 20.1 TH/MM3 (1.8-7.7); BASOPHIL # 0.1 TH/MM3 (0-0.2); BASOPHIL % 0.5 % (0.0-2.0); EOSINOPHIL % 0.2 % (0.0-4.0); HEMATOCRIT 32.9 % (39.0-51.0); LYMPH % 7.7 % (9.0-44.0); LYMPHOCYTE # 1.8 TH/MM3 (1.0-4.8); MEAN CELL VOLUME 88.6 FL (80.0-100.0); MEAN CORPUSCULAR HEMOGLOBIN 28.8 PG (27.0-34.0); MEAN CORPUSCULAR HGB CONC 32.6 % (32.0-36.0); MONO % 7.8 % (0.0-8.0); NEUT % 83.8 % (16.0-70.0); PLATELET COUNT 246 TH/MM3 (150-450); RED BLOOD COUNT 3.72 MIL/MM3 (4.50-5.90)
[2017-10-09 08:19] LABS: HEMO FLAGS AUTO DIFF
[2017-10-09 08:26] LABS: APTT (PATIENT) 37.8 SEC (24.3-30.1); INTERNATIONAL NORMALIZED RATIO 1.1 RATIO
[2017-10-09 08:31] LABS: POTASSIUM 3.3 MEQ/L (3.5-5.1)
--- NOTE | 2017-10-09 08:58 | RADRPT ---
EXAM DATE/TIME: 10/09/2017 08:19 [facility] COMPARISON: No previous studies available for comparison. INDICATIONS : Left leg pain and swelling. MEDICAL HISTORY : Hypercholesterolemia. Hypertension. Myocardial infarction. Psoriasis. SURGICAL HISTORY : Coronary stent. Cardiac catheterization. Right hip replacement. ENCOUNTER: Initial ACUITY: 2 day PAIN SCORE: 8/10 LOCATION: Left leg. TECHNIQUE: Venous ultrasound of the leg was performed from the inguinal ligament to the proximal calf. Real-bertrand e, color Doppler and spectral tracing, compression and augmentation techniques were used. FINDINGS: There is normal compressibility of the deep venous system from the inguinal region to the proximal ca lf. No echogenic clot is seen in the lumen of the common femoral, femoral, popliteal, and posterior tibial veins. There is a normal response of the venous system to proximal and distal augmentation an d respiration. Incidental note of multiple enlarged inguinal lymph nodes with the largest measuring 5.0 x 4.5 x 1.8 cm. CONCLUSION: 1. No sonographic evidence for left lower extremity DVT. 2. Multiple left inguinal lymph nodes with the largest measuring up to 5 cm. Findings are nonspecific but generally reflect reactive adenopathy. Rosas Johnson MD on October 09, 2017 at 8:55 Board Certified Radiologist. This report was verified electronically.
[2017-10-09 09:09] LABS: BANDS 23 % (0-6); METAMYELOCYTES 2 % (0-1); NEUTROPHIL # MANUAL DIFF 21.1 TH/MM3 (1.8-7.7); PLATELET ESTIMATE SMEAR NORMAL (NORMAL); PLATELET MORPHOLOGY NORMAL (NORMAL); POLYS (SEG NEUTROPHILS) 63 % (16-70); SCAN/DIFF FINAL DIFF MANUAL; WBC DIFF SAMPLE 100
[2017-10-09 09:10] LABS: DOHLE BODIES PRESENT (NONE SEEN); TOXIC GRANULATION 1+ (NORMAL); TOXIC VACUOLATION PRESENT (NONE SEEN)
[2017-10-09] MEDS ORDERED: POTASSIUM CHLORIDE 20 MEQ CONTROLLED RELEASE TAB PO ONE (09:15)
[2017-10-09 09:19] VITALS: BP 133/85; PULSE 82; RESP 18; TEMP 98.9; O2SAT 98
[2017-10-09] MEDS ORDERED: TYLE325T PO (10:33)
[2017-10-09] MEDS ORDERED: CLIN300C5 PO (10:33)
[2017-10-09 10:45] VITALS: BP 130/78; TEMP 98.1
--- NOTE | 2017-10-09 19:50 | EKG ---
Date Performed: 10/09/2017 Time Performed: 07:55:20 PTAGE: 57 years EKG: Sinus rhythm Since previous tracing, no significant change noted NORMAL ECG PREVIOUS TRACING : 04/24/2017 11.56.43 DOCTOR: Holger Cadet Interpretating Date/Time 10/09/2017 19:48:01
== END 2017-10-09 10:45 | disposition home or self-care (01) ==
LOC: NEPC 07:30
DX: L03.116 Cellulitis of left lower limb (principal); M79.89 Other specified soft tissue disorders; R51 Headache; R19.7 Diarrhea, unspecified; D72.829 Elevated white blood cell count, unspecified; E87.6 Hypokalemia; E78.00 Pure hypercholesterolemia, unspecified; I10 Essential (primary) hypertension; M19.90 Unspecified osteoarthritis, unspecified site
CPT/HCPCS: 80048; 83605; 85007; 85027; 85610; 85730; 87040; 87804; 93005; 93971; 96361; 96365; 96375; 99285; J2405; J7030

== ENCOUNTER 2017-10-14 07:26 | Emergency (ER) | payer BC ==
[~2017-10-14] VITALS: Ht 180.3 cm; Wt 128.0 kg
[~2017-10-14 07:26] MED LIST changes: +CLIN300C5 PO; +TYLE325T PO
[2017-10-14 07:31] VITALS: BP 163/81; PULSE 72; RESP 14; TEMP 98.4; O2SAT 99
--- NOTE | 2017-10-14 07:53 | PD ---
HPI Chief Complaint: Pain: Acute or Chronic Time Seen by Provider: 07:39 Travel History International Travel<30 days: No Contact w/Intl Traveler<30days: No Traveled to known affect area: No History of Present Illness HPI 57-year-old Afro-[place] male presents the emergency department with ongoing left lower extremity pain. Patient was recently seen on 09 October 2017, with cellulitis of the left lower extremity. DVT was ruled out. Patient was treated with clindamycin IV as well as by mouth. Overall his left lower leg is improving with decreased swelling, erythema, but his pain continues especially when he is ambulatory. He denies recent fever or chills. He is currently on clindamycin 300 mg 4 times a day 10 days. He was previously on gabapentin which he ran out of. He is simply here to request something for pain until his cellulitis is completely better. Patient states he called his primary care physician and was told to take Tylenol which she has been taking without improvement. Patient also takes blood pressure medication which she is taking. He has no known drug allergies. PFSH Past Medical History Cancer: No Cardiac Catheterization: Yes Cardiovascular Problems: Yes High Cholesterol: Yes Diabetes: No Endocrine: No Gastrointestinal Disorders: No Genitourinary: No Hepatitis: No Hiatal Hernia: No Hypertension: Yes Immune Disorder: No Musculoskeletal: Yes (OA) Neurologic: No Psychiatric: No Reproductive: No Respiratory: No Myocardial Infarction: Yes ("possibly in 2011") Thyroid Disease: No Past Surgical History Abdominal Surgery: No AICD: No Body Medical Devices: CARDIAC STENTS Cardiac Surgery: Yes (CARDIAC STENTS) Coronary Stent: Yes (2 STENTS JUL 17 2012) Ear Surgery: No Endocrine Surgery: No Eye Surgery: No Genitourinary Surgery: No Joint Replacement: Yes (R hip replacement 05/2017) Neurologic Surgery: No Oral Surgery: No Pacemaker: No Thoracic Surgery: No Other Surgery: Yes Social History Alcohol Use: No Tobacco Use: No Substance Use: No Allergies-Medications (Allergen,Severity, Reaction): Coded Allergies: No Known Allergies (Unverified , 06/06/17) Reported Meds & Prescriptions Reported Meds & Active Scripts Active Tramadol (Tramadol HCl) 50 Mg Tab 50 Mg PO Q6H PRN Gabapentin 300 Mg Cap 300 Mg PO TID Tylenol (Acetaminophen) 325 Mg Tab 650 Mg PO Q6H PRN Clindamycin (Clindamycin HCl) 300 Mg Cap 300 Mg PO Q6H 10 Days Neurontin (Gabapentin) 300 Mg Cap 300 Mg PO TID Metaxalone 400 Mg Tab 400 Mg PO HS Walker with Front Wheels (Device) 1 Mis Mis 1 Ea .ROUTE DIRECTED Reported Aspirin 81 (Aspirin) 81 Mg Tabdr 81 Mg PO DAILY Carvedilol 12.5 Mg Tab 12.5 Mg PO BID Losartan (Losartan Potassium) 50 Mg Tab 50 Mg PO DAILY Amlodipine (Amlodipine Besylate) 5 Mg Tab 5 Mg PO DAILY Review of Systems General / Constitutional: No: Fever Eyes: No: Visual changes HENT: No: Headaches Cardiovascular: No: Chest Pain or Discomfort Respiratory: No: Shortness of Breath Gastrointestinal: No: Abdominal Pain Genitourinary: No: Dysuria Musculoskeletal: Positive: Myalgias, Pain (history of present illness.) Skin: Positive Lesions, No Rash Neurologic: No: Weakness Psychiatric: No: Depression Endocrine: No: Polydipsia Hematologic/Lymphatic: No: Easy Bruising Physical Exam Narrative GENERAL: Patient appears in no acute distress. SKIN: Warm and dry. Normal color. Normal turgor. Patient has warmth, induration, and swelling of the left lower extremity from the knee down patient states that he is 50% improved from Monday. There is no Open wound or drainage currently. HEAD: Atraumatic. Normocephalic. EYES: Pupils equal and round. No scleral icterus. No injection or drainage. ENT: No nasal bleeding or discharge. Mucous membranes pink and moist. NECK: Trachea midline. No JVD. CARDIOVASCULAR: Regular rate and rhythm. RESPIRATORY: No accessory muscle use. Clear to auscultation. Breath sounds equal bilaterally. GASTROINTESTINAL: Abdomen soft, non-tender, nondistended. Hepatic and splenic margins not palpable. MUSCULOSKELETAL: Extremities without clubbing, cyanosis, or edema. No obvious deformities. Negative Homans sign on the left. NEUROLOGICAL: Awake and alert. No obvious cranial nerve deficits. Motor grossly within normal limits. Five out of 5 muscle strength in the arms and legs. Normal speech. PSYCHIATRIC: Appropriate mood and affect; insight and judgment normal. Data Data Last Documented VS Vital Signs Date Time Temp Pulse Resp B/P (MAP) Pulse Ox O2 Delivery O2 Flow Rate FiO2 10/14/17 07:31 98.4 72 14 163/81 (108) 99 Orders Orders Ed Discharge Order (10/14/17 07:59) MDM Medical Decision Making Medical Screen Exam Complete: Yes Emergency Medical Condition: Yes Differential Diagnosis Left lower leg cellulitis. Improving sepsis. Need for pain management. Narrative Course Patient appears medically stable and clinically improving from previous visit. Vital signs are stable. Patient is to continue his clindamycin as previously prescribed. Patient will restart gabapentin 300 mg 3 times a day which she was on previously. #90. Patient also given tramadol 50 mg one every 6 hours when necessary pain #20. Patient is encouraged to keep the area elevated use warm compresses and follow- up with his primary care next week to ensure resolution. Patient can return to emergency department if symptoms worsen. Diagnosis Primary Impression: Cellulitis of left lower extremity Referrals: Primary Care Physician Patient Instructions: Cellulitis (ED), General Instructions Additional Instructions: Patient is to continue his clindamycin as previously prescribed. Patient will restart gabapentin 300 mg 3 times a day which she was on previously. #90. Patient also given tramadol 50 mg one every 6 hours when necessary pain #20. Patient is encouraged to keep the area elevated use warm compresses and follow- up with his primary care next week to ensure resolution. Patient can return to emergency department if symptoms worsen. Med/Other Pt SpecificInfo: Prescription(s) given Scripts Tramadol (Tramadol) 50 Mg Tab 50 MG PO Q6H Y for PAIN, #20 TAB 0 Refills Prov: Aris Bustamante MD 10/14/17 Gabapentin (Gabapentin) 300 Mg Cap 300 MG PO TID, #90 CAP 0 Refills Prov: Aris Bustamante MD 10/14/17 Disposition: 01 DISCHARGE HOME Condition: Stable Lucas Keenan Oct 14, 2017 07:53
[2017-10-14] MEDS ORDERED: GABA300C5 PO (07:54)
[2017-10-14] MEDS ORDERED: TRAM50TA PO (07:54)
== END 2017-10-14 08:29 | disposition home or self-care (01) ==
LOC: NEPD 07:26
DX: L03.116 Cellulitis of left lower limb (principal)
CPT/HCPCS: 99284